=== PATIENT | female | born 1940 | race Caucasian/White ===

== ENCOUNTER → 2016-06-30 | Outpatient (CLI) | payer OTHER ==
--- NOTE | 2016-06-30 15:34 | RAD ---
HISTORY: Lumbosacral neuritis Study: 6 views of the lumbar spine Comparison: None. Findings: Severe multilevel degenerative disc disease. Dextro curvature of the lumbar spine. Vertebral body h eights are normal. Sacroiliac joints are unremarkable. No evidence for acute fracture can be identi fied. IMPRESSION: 1. Severe multilevel degenerative disc disease appear Reported By:
--- NOTE | 2016-07-01 08:19 | RAD ---
HISTORY: Back pain Study: 3 views of the thoracic spine. Comparison: None Findings: Grossly normal alignment of the thoracic spine. Multilevel degenerative disc disease. Vertebral bod y heights are grossly maintained. IMPRESSION: 1. Multilevel degenerative disc disease. Reported By:
--- NOTE | 2016-07-04 12:59 | MRI ---
HISTORY: Chronic low back pain, lumbosacral neuritis Study: MRI lumbar spine without contrast Comparison: Plain films same date Technique: Multiplanar multi-sequence MRI of the lumbar spine was obtained. Sagittal T1, sagittal T 2, and stir weighted images, axial T1, and axial T2 images were obtained. Findings: Lumbar dextro rotoscoliosis is present. The lumbar spine otherwise normal alignment with the expecte d signal characteristics of the bone marrow. The conus of the cord terminates normally T12 -- L1: No evidence for compressive disc disease. The neural foramina are patent. The joints are normal. L1 -- L2: There is mild broad-based disc bulging which causes mild thecal sac effacement and contrib utes along with bilateral facet arthropathy to lateral recess and foraminal narrowing bilaterally. L2 -- L3: Mild broad-based disk bulging effaces the thecal sac it extends somewhat more to the left than the right where it contributes along with facet arthropathy to lateral recess and foraminal dez rowing. The right neural foramen is patent. L3 -- L4: Mild broad-based disc bulging contributes along with ligamentous hypertrophy and bilateral facet arthropathy to a relative spinal stenosis with lateral recess and foraminal narrowing bilater ally L4 -- L5: Broad-based disc protrusion effaces the thecal sac and contributes along with bilateral fa cet arthropathy and spondylitic change to lateral recess and foraminal narrowing on the right and mi ld lateral recess narrowing on the left. Incidental note is made of a 11 millimeter x 7.7 millimeter x 8.7 millimeter synovial cyst arising from the left facet joint. It is not significantly compressi ve. L5 -- S1: There is disc degeneration with broad-based disc protrusion which contributes along with s pondylitic change and facet arthropathy to significant lateral recess and foraminal narrowing bilate rally. IMPRESSION: As above Reported By:
== END | disposition home or self-care (01) | DRG 552 ==
LOC: RAD 10:39
PROVIDERS: ATTEND Neurological Surgery
DX: M51.17 Intervertebral disc disorders with radiculopathy, lumbosacral region (principal); M51.36 Other intervertebral disc degeneration, lumbar region; M51.34 Other intervertebral disc degeneration, thoracic region
CPT/HCPCS: 72072; 72120; 72148